=== PATIENT | female | born 1960 | race Caucasian/White ===

== ENCOUNTER 2019-01-10 10:15 | Inpatient (IN) ==
[2019-01-10] MEDS ORDERED: *HR* Midazolam HCl 2 MG/2 ML VIAL ONE (10:22)
[2019-01-10] MEDS ORDERED: *HR* FentaNYL (PF) 100 MCG/2 ML VIAL ONE (10:22)
[2019-01-10] MEDS ORDERED: CeFAZolin Syr 2,000MG/20 ML 2,000 MG/20 ML SYRINGE IVPB ONE (10:32)
[2019-01-10] MEDS: Ringers Solution, Lactated 1,000 ML IVC SCH ×2 (10:52→13:15)
[2019-01-10] MEDS ORDERED: Ethanol\\Acetic Acid\\Na Ace\\Ben 1,000 ML IRRIG.SOLN IR ONE (11:20)
[2019-01-10] MEDS ORDERED: Celecoxib 100 MG CAPSULE PO ONE (11:25)
[2019-01-10] MEDS ORDERED: Acetaminophen IV 1,000 MG/100 ML INFUS..BTL IVPB ONE ×2 (11:25→15:21)
[2019-01-10] MEDS ORDERED: *HR* OxyCODONE Immed Rel 5 MG TABLET PO ONE (11:28)
[2019-01-10] MEDS ORDERED: Gabapentin 300 MG CAPSULE PO ONE ×2 (11:32→15:21)
[2019-01-10] MEDS ORDERED: Gabapentin 300 MG CAPSULE ONE (11:35)
[2019-01-10] MEDS ORDERED: Propofol 500 MG/50 ML INFUS..BTL ONE ×3 (12:05→13:12)
[2019-01-10] MEDS ORDERED: Tranexamic Acid 1,000 MG/10 ML VIAL ONE (12:06)
[2019-01-10] MEDS ORDERED: Ondansetron 4 MG/2 ML VIAL ONE (12:13)
[2019-01-10] MEDS ORDERED: Dexamethasone 4 MG/ML VIAL ONE (12:13)
[2019-01-10] MEDS ORDERED: *HR* PHENYLEPHRINE 1,000 MCG/10 ML SYRINGE IVP ONE (13:20)
[2019-01-10] MEDS ORDERED: *HR* Propofol 200 MG/20 ML VIAL IVP ONE (13:47)
[2019-01-10 14:47] LABS: Hemoglobin 9.4 g/dL (11.5-15.4)
[2019-01-10] MEDS ORDERED: Sennosides 8.6 MG TABLET PO PRN (15:21)
[2019-01-10] MEDS ORDERED: MOM Conc 10 ML UD.LIQ PO PRN (15:21)
[2019-01-10] MEDS ORDERED: Ondansetron 4 MG/2 ML VIAL IVP PRN (15:21)
[2019-01-10] MEDS ORDERED: *HR* Promethazine 25 MG/ML VIAL IVP PRN (15:21)
[2019-01-10] MEDS ORDERED: Temazepam 15 MG CAPSULE PO PRN (15:21)
[2019-01-10] MEDS ORDERED: *HR* OxyCODONE Immed Rel 5 MG TABLET PO PRN (15:21)
[2019-01-10] MEDS ORDERED: Celecoxib 200 MG CAPSULE PO ONE (15:21)
[2019-01-10] MEDS ORDERED: Dexamethasone 10 MG/ML VIAL IVP ONE ×2 (15:21)
[2019-01-10] MEDS ORDERED: Ringers Solution, Lactated 1,000 ML IVC SCH (15:21)
[2019-01-10] MEDS ORDERED: Naloxone 0.4 MG/ML INJ IVP PRN (15:21)
[2019-01-10] MEDS: Gabapentin 300 MG CAPSULE PO SCH ×2 (16:42→19:47)
[2019-01-10] MEDS: Ascorbic Acid 500 MG TABLET PO SCH (16:46)
[2019-01-10] MEDS ORDERED: *HR* Enoxaparin 30 MG/0.3 ML SYRINGE SQ SCH (18:00)
[2019-01-10] MEDS: ceFAZolin 2,000 MG in 0.9 % Sodium Chloride 100 ML IVPB SCH (18:23)
[2019-01-10] MEDS: HYDROcodone BIT/Homatropine 5 MG TABLET PO PRN (18:36)
[2019-01-11] MEDS: ceFAZolin 2,000 MG in 0.9 % Sodium Chloride 100 ML IVPB SCH (00:13)
[2019-01-11 02:40] LABS: Basophils % 0.1 %; Hematocrit 28.5 % (35.3-44.9); Hemoglobin 8.7 g/dL (11.5-15.4); Immature Granulocytes % 0.5 % (0-4); Lymphocytes # 1.2 K/mcL (0.6-4.6); Lymphocytes % 7.7 %; Mean Corpuscular HGB Conc 30.5 g/dL (31.6-35.5); Mean Corpuscular Volume 85.3 fL (83.0-100.0); Mean Platelet Volume 9.4 fL (9.4-12.4); Monocytes # 1.1 K/mcL (0.0-1.3); Monocytes % 7.2 %; Platelet Count 316 K/mcL (140-400); Red Blood Count 3.34 M/mcL (3.82-4.97); Red Cell Distribution Width 14.3 % (11.5-14.5); Segmented Neutrophils % 84.5 %; White Blood Count 15.4 K/mcL (4.3-11.1)
[2019-01-11 02:49] LABS: BUN/Creatinine Ratio 29 (6-26); Blood Urea Nitrogen 29 mg/dL (6-20); Calcium 8.5 mg/dL (8.6-10.3); Carbon Dioxide 25 mEq/L (23-29); Chloride 104 mEq/L (98-107); Glucose 146 mg/dL (70-105); Osmolality,Calculated 288 (280-300); Potassium 4.4 mEq/L (3.5-5.1); Sodium 135 mEq/L (136-145); eGFR For African Americans > 60 (> 60); eGFR For Non-African Americans 57 (> 60)
[2019-01-11] MEDS: Gabapentin 300 MG CAPSULE PO SCH ×3 (07:51→19:47)
[2019-01-11] MEDS: Multivit/Ca/Min/Fe/FA 1 TAB TABLET PO SCH (07:51)
[2019-01-11] MEDS: Ascorbic Acid 500 MG TABLET PO SCH ×2 (07:52→16:32)
[2019-01-11] MEDS: Metoprolol XL (24 HR) Succ 50 MG TAB.ER.24H PO SCH (07:53)
[2019-01-11] MEDS: *HR* Enoxaparin 30 MG/0.3 ML SYRINGE SQ SCH ×2 (09:34→16:32)
[2019-01-11] MEDS: HYDROcodone BIT/Homatropine 5 MG TABLET PO PRN ×2 (09:42→14:36)
[2019-01-12 05:14] LABS: Basophils % 0.2 %; Eosinophils # 0.2 K/mcL (0.0-0.6); Eosinophils % 1.8 %; Hematocrit 26.2 % (35.3-44.9); Hemoglobin 8.1 g/dL (11.5-15.4); Immature Granulocytes % 0.5 % (0-4); Lymphocytes # 2.9 K/mcL (0.6-4.6); Lymphocytes % 23.5 %; Mean Corpuscular HGB Conc 30.9 g/dL (31.6-35.5); Mean Corpuscular Volume 87.3 fL (83.0-100.0); Mean Platelet Volume 9.3 fL (9.4-12.4); Monocytes # 1.3 K/mcL (0.0-1.3); Monocytes % 10.7 %; Neutrophils # 7.8 K/mcL (1.6-8.9); Platelet Count 255 K/mcL (140-400); Red Cell Distribution Width 14.6 % (11.5-14.5); Segmented Neutrophils % 63.3 %; White Blood Count 12.4 K/mcL (4.3-11.1)
[2019-01-12 05:33] LABS: BUN/Creatinine Ratio 24 (6-26); Blood Urea Nitrogen 23 mg/dL (6-20); Calcium 8.6 mg/dL (8.6-10.3); Carbon Dioxide 31 mEq/L (23-29); Chloride 104 mEq/L (98-107); Glucose 114 mg/dL (70-105); Osmolality,Calculated 295 (280-300); Potassium 4.3 mEq/L (3.5-5.1); Sodium 140 mEq/L (136-145); eGFR For African Americans > 60 (> 60); eGFR For Non-African Americans 59 (> 60)
[2019-01-12] MEDS: Multivit/Ca/Min/Fe/FA 1 TAB TABLET PO SCH (09:26)
[2019-01-12] MEDS: Gabapentin 300 MG CAPSULE PO SCH ×3 (09:26→22:13)
[2019-01-12] MEDS: Ascorbic Acid 500 MG TABLET PO SCH ×2 (09:26→16:21)
[2019-01-12] MEDS: Metoprolol XL (24 HR) Succ 50 MG TAB.ER.24H PO SCH (09:27)
[2019-01-13 06:46] LABS: Basophils # 0.1 K/mcL (0.0-0.2); Basophils % 0.4 %; Eosinophils # 0.4 K/mcL (0.0-0.6); Eosinophils % 3.1 %; Hematocrit 26.6 % (35.3-44.9); Hemoglobin 8.1 g/dL (11.5-15.4); Immature Granulocytes % 0.5 % (0-4); Lymphocytes # 2.6 K/mcL (0.6-4.6); Lymphocytes % 23.5 %; Mean Corpuscular HGB Conc 30.5 g/dL (31.6-35.5); Mean Corpuscular Volume 85.3 fL (83.0-100.0); Monocytes # 1.1 K/mcL (0.0-1.3); Monocytes % 9.4 %; Platelet Count 274 K/mcL (140-400); Red Blood Count 3.12 M/mcL (3.82-4.97); Red Cell Distribution Width 14.9 % (11.5-14.5); Segmented Neutrophils % 63.1 %; White Blood Count 11.2 K/mcL (4.3-11.1)
[2019-01-13 07:03] LABS: BUN/Creatinine Ratio 31 (6-26); Blood Urea Nitrogen 25 mg/dL (6-20); Calcium 8.6 mg/dL (8.6-10.3); Carbon Dioxide 30 mEq/L (23-29); Chloride 102 mEq/L (98-107); Glucose 103 mg/dL (70-105); Osmolality,Calculated 291 (280-300); Potassium 4.2 mEq/L (3.5-5.1); Sodium 138 mEq/L (136-145); eGFR For African Americans > 60 (> 60); eGFR For Non-African Americans > 60 (> 60)
[2019-01-13] MEDS: Gabapentin 300 MG CAPSULE PO SCH ×3 (08:34→21:44)
[2019-01-13] MEDS: Aspirin 325 MG TABLET PO SCH ×2 (08:35→21:44)
[2019-01-13] MEDS: Multivit/Ca/Min/Fe/FA 1 TAB TABLET PO SCH (08:35)
[2019-01-13] MEDS: Ascorbic Acid 500 MG TABLET PO SCH ×2 (08:35→16:53)
[2019-01-13] MEDS: Metoprolol XL (24 HR) Succ 50 MG TAB.ER.24H PO SCH (09:21)
[2019-01-14 07:06] LABS: Basophils % 0.3 %; Eosinophils # 0.4 K/mcL (0.0-0.6); Eosinophils % 3.4 %; Hematocrit 26.9 % (35.3-44.9); Hemoglobin 8.4 g/dL (11.5-15.4); Immature Granulocytes % 0.8 % (0-4); Lymphocytes # 2.8 K/mcL (0.6-4.6); Lymphocytes % 23.1 %; Mean Corpuscular HGB Conc 31.2 g/dL (31.6-35.5); Mean Corpuscular Hemoglobin 26.6 pg (28.0-33.3); Mean Corpuscular Volume 85.1 fL (83.0-100.0); Monocytes # 0.9 K/mcL (0.0-1.3); Monocytes % 7.4 %; Neutrophils # 7.8 K/mcL (1.6-8.9); Platelet Count 297 K/mcL (140-400); Red Blood Count 3.16 M/mcL (3.82-4.97); Red Cell Distribution Width 14.9 % (11.5-14.5)
[2019-01-14 07:25] LABS: BUN/Creatinine Ratio 25 (6-26); Blood Urea Nitrogen 21 mg/dL (6-20); Carbon Dioxide 30 mEq/L (23-29); Chloride 103 mEq/L (98-107); Glucose 103 mg/dL (70-105); Osmolality,Calculated 287 (280-300); Potassium 4.2 mEq/L (3.5-5.1); Sodium 137 mEq/L (136-145); eGFR For African Americans > 60 (> 60); eGFR For Non-African Americans > 60 (> 60)
[2019-01-14] MEDS: Aspirin 325 MG TABLET PO SCH ×2 (08:05→20:26)
[2019-01-14] MEDS: Metoprolol XL (24 HR) Succ 50 MG TAB.ER.24H PO SCH (08:05)
[2019-01-14] MEDS: Ascorbic Acid 500 MG TABLET PO SCH ×2 (08:05→16:15)
[2019-01-14] MEDS: Gabapentin 300 MG CAPSULE PO SCH ×3 (08:05→20:26)
[2019-01-14] MEDS: Multivit/Ca/Min/Fe/FA 1 TAB TABLET PO SCH (08:05)
[2019-01-15] MEDS: Multivit/Ca/Min/Fe/FA 1 TAB TABLET PO SCH (07:49)
[2019-01-15] MEDS: Aspirin 325 MG TABLET PO SCH ×2 (07:49→19:28)
[2019-01-15] MEDS: Metoprolol XL (24 HR) Succ 50 MG TAB.ER.24H PO SCH (07:50)
[2019-01-15] MEDS: Gabapentin 300 MG CAPSULE PO SCH ×3 (07:50→19:28)
[2019-01-15] MEDS: Ascorbic Acid 500 MG TABLET PO SCH ×2 (07:50→16:26)
[2019-01-16 07:03] LABS: Hematocrit 27.1 % (35.3-44.9); Hemoglobin 8.3 g/dL (11.5-15.4)
[2019-01-16] MEDS: Gabapentin 300 MG CAPSULE PO SCH (08:27)
[2019-01-16] MEDS: Multivit/Ca/Min/Fe/FA 1 TAB TABLET PO SCH (08:27)
[2019-01-16] MEDS: Metoprolol XL (24 HR) Succ 50 MG TAB.ER.24H PO SCH (08:27)
[2019-01-16] MEDS: Ascorbic Acid 500 MG TABLET PO SCH (08:27)
[2019-01-16] MEDS: Aspirin 325 MG TABLET PO SCH (08:27)
[2019-01-16 11:49] VITALS: BP 136/80
== END 2019-01-16 17:07 | disposition home health service (06) | DRG 470 ==
LOC: SAMDAY 10:15 → 3NENU 15:27
PROVIDERS: ADMIT Orthopaedic Surgery; ATTEND Orthopaedic Surgery